=== PATIENT | female | born 1945 | race Caucasian/White ===

== ENCOUNTER → 2017-07-22 | Outpatient (CLI) | payer MEDICARE, BC | END | disposition home or self-care (01) | LOC: CFH 12:14 | PROVIDERS: ATTEND Nurse Practitioner Family | DX: Z12.31 Encounter for screening mammogram for malignant neoplasm of breast (principal); Z78.0 Asymptomatic menopausal state | CPT/HCPCS: G0202 ==

== ENCOUNTER 2018-07-28 08:57 | Inpatient (IN) | payer MEDICARE, BC ==
[~2018-07-28] VITALS: Ht 152.4 cm; Wt 68.7 kg
[2018-07-28] MEDS ORDERED: PANT40TA5 PO (10:13)
[2018-07-28] MEDS ORDERED: ENTA200T22 PO (10:13)
[2018-07-28] MEDS ORDERED: DONE10TA7 PO (10:13)
[2018-07-28] MEDS ORDERED: LEVO100T5 PO (10:13)
[2018-07-28 10:14] LABS: BASOPHILS # (AUTO) 0.06 x10^3/uL (0-0.1); BASOPHILS % (AUTO) 1 % (0-1); EOSINOPHILS # (AUTO) 0.03 x10^3/uL (0-0.4); EOSINOPHILS % (AUTO) 1 % (1-7); LYMPHOCYTES # (AUTO) 0.95 x10^3/uL (1-3.4); LYMPHOCYTES % (AUTO) 13 % (22-44); MD NO; MEAN CORPUSCULAR HEMOGLOBIN 30.7 pg (27.0-34.8); MEAN CORPUSCULAR HGB CONC 34.4 g/dL (32.4-35.8); MEAN CORPUSCULAR VOLUME 89.2 fL (80-100); MEAN PLATELET VOLUME 7.7 fL (7.4-10.4); MONOCYTES # (AUTO) 0.28 x10^3/uL (0.2-0.8); MONOCYTES % (AUTO) 4 % (2-9); NEUTROPHILS # (AUTO) 5.77 x10^3/uL (1.8-6.8); NEUTROPHILS % (AUTO) 81 % (42-75); PLATELET COUNT 341 x10^3/uL (130-400); RED BLOOD COUNT 4.68 x10^6/uL (3.82-5.3); RED CELL DISTRIBUTION WIDTH 13.7 % (9.6-15.2)
[2018-07-28 10:24] LABS: ALBUMIN 3.3 g/dL (3.4-5.0); ANION GAP 6 mmol/L (5-15); CALCIUM 9.1 mg/dL (8.5-10.1); CHLORIDE 111 mmol/L (98-107); INTERNATIONAL NORMALIZED RATIO 0.97 (0.93-1.1); PROTHROMBIN TIME 10.3 Seconds (9.6-11.5)
[2018-07-28 10:27] LABS: ALANINE AMINOTRANSFERASE 31 U/L (12-78); CREATININE 1.07 mg/dL (0.55-1.02)
[2018-07-28 10:37] LABS: ALKALINE PHOSPHATASE 106 U/L (45-117); BILIRUBIN,TOTAL 0.5 mg/dL (0.2-1.0); THYROID STIMULATING HORMONE 0.096 mIU/L (0.358-3.740); TOTAL PROTEIN 7.1 g/dL (6.4-8.2)
[2018-07-28 11:11] LABS: MICROSCOPIC AUTO
[2018-07-28 11:12] LABS: CULTURE INDICATED? YES
[2018-07-28] MEDS ORDERED: CEFTRIAXONE PMX 1GM/50ML 50 ML IV ONE (12:00)
[2018-07-28] MEDS ORDERED: CEFTRIAXONE PMX 1GM/50ML 50 ML ONE (12:10)
[2018-07-28] MEDS ORDERED: NS + 20MEQ KCL 1,000 ML IV SCH (12:56)
[2018-07-28] MEDS ORDERED: HYDROcodone/APAP 5/325 TABLET PO PRN (13:00)
[2018-07-28] MEDS ORDERED: ACETAMINOPHEN 325 MG TABLET PO PRN (13:00)
[2018-07-28] MEDS ORDERED: POLYETHYLENE GLYCOL 17 GM PACKET PO PRN (13:00)
[2018-07-28] MEDS ORDERED: morphine SULFATE 10 MG/ML, 1ML IVPush PRN (13:00)
[2018-07-28] MEDS ORDERED: DOCUSATE 100 MG CAPSULE PO PRN (13:00)
[2018-07-28] MEDS ORDERED: ONDANSETRON 2MG/ML, 2ML IVPush PRN (13:00)
[2018-07-28 13:21] VITALS: BP 145/83
[2018-07-28] MEDS ORDERED: CEFTRIAXONE PMX 1GM/50ML 50 ML IV SCH (14:30)
[2018-07-28] MEDS: LEVOTHYROXINE 100 MCG TABLET PO SCH (14:40)
[2018-07-28] MEDS: ENTACAPONE 200 MG TABLET PO SCH ×2 (18:08→21:05)
[2018-07-28] MEDS: ENOXAPARIN 40 MG/0.4 ML SQ SCH (18:09)
[2018-07-28 19:20] VITALS: BP 166/71
[2018-07-28] MEDS ORDERED: hydrALAzine 20 MG/ML, 1ML IV PRN (20:00)
[2018-07-28 21:02] VITALS: BP 156/71
[2018-07-28] MEDS: DONEPEZIL 10 MG TABLET PO SCH (21:04)
[2018-07-28] MEDS: FAMOTIDINE 20 MG TABLET PO SCH (21:05)
[2018-07-29 01:34] VITALS: BP 161/76
[2018-07-29 01:56] VITALS: BP 135/74
[2018-07-29 05:49] LABS: ANION GAP 6 mmol/L (5-15); CALCIUM 8.2 mg/dL (8.5-10.1); CHLORIDE 114 mmol/L (98-107); CREATININE 0.93 mg/dL (0.55-1.02)
[2018-07-29] MEDS: LEVOTHYROXINE 100 MCG TABLET PO SCH (05:57)
[2018-07-29] MEDS: ENTACAPONE 200 MG TABLET PO SCH ×4 (05:57→21:00)
[2018-07-29 06:30] VITALS: BP 147/76
[2018-07-29] MEDS: SENNA/DOCUSATE TABLET PO SCH (08:01)
[2018-07-29] MEDS: FAMOTIDINE 20 MG TABLET PO SCH ×2 (08:02→21:00)
[2018-07-29] MEDS: CEFTRIAXONE PMX 1GM/50ML 50 ML IV SCH (11:34)
[2018-07-29 14:57] VITALS: BP 137/72
[2018-07-29] MEDS: ENOXAPARIN 40 MG/0.4 ML SQ SCH (16:43)
[2018-07-29 20:04] VITALS: BP 146/83
[2018-07-29] MEDS: DONEPEZIL 10 MG TABLET PO SCH (21:00)
[2018-07-30] MEDS ORDERED: DIPHENHYDRAMINE 25 MG CAPSULE PO PRN (00:30)
[2018-07-30 01:42] VITALS: BP 134/71
[2018-07-30] MEDS: ENTACAPONE 200 MG TABLET PO SCH ×2 (06:00→13:14)
[2018-07-30] MEDS: LEVOTHYROXINE 100 MCG TABLET PO SCH (06:00)
[2018-07-30 08:08] VITALS: BP 150/74
[2018-07-30] MEDS: SENNA/DOCUSATE TABLET PO SCH (09:00)
[2018-07-30] MEDS: FAMOTIDINE 20 MG TABLET PO SCH (10:01)
[2018-07-30] MEDS: CEFTRIAXONE PMX 1GM/50ML 50 ML IV SCH (11:45)
[2018-07-30 14:03] VITALS: BP 133/76
[2018-07-30] MEDS ORDERED: SULF1TAB24 PO (14:15)
[2018-07-30] MEDS ORDERED: DIVA500T2 PO (14:15)
== END 2018-07-30 16:50 | disposition home or self-care (01) | DRG 100 ==
LOC: ED 11:26 → 4WST 12:00 → DCLOUNGE 07-30 16:32
PROVIDERS: ADMIT Internal Medicine; ATTEND Family Medicine
DX: G40.89 Other seizures (principal); N17.0 Acute kidney failure with tubular necrosis; N39.0 Urinary tract infection, site not specified; G90.8 Other disorders of autonomic nervous system; F02.80 Dementia in other diseases classified elsewhere, unspecified severity, without behavioral disturbance, psychotic disturbance, mood disturbance, and anxiety; G30.9 Alzheimer's disease, unspecified; E86.0 Dehydration
CPT/HCPCS: 36415; 71045; 80048; 80053; 81001; 83735; 84443; 85025; 85610; 85730; 87086; 93005; 95819; 96374; G0378; J0696; J1650; J3480